=== PATIENT | male | born 1980 | race African-American/Black ===

== ENCOUNTER 2017-03-11 09:46 | Emergency (ER) | payer BC, OTHER ==
[~2017-03-11] VITALS: Ht 182.9 cm; Wt 100.0 kg
[2017-03-11 10:03] VITALS: BP 125/53
== END 2017-03-11 14:30 | disposition home or self-care (01) ==
LOC: ER 11:45
DX: M25.562 Pain in left knee (principal); G89.29 Other chronic pain; Z87.891 Personal history of nicotine dependence; Z98.890 Other specified postprocedural states
CPT/HCPCS: 99283; L1830; Z7610

== ENCOUNTER 2019-10-12 03:40 | Emergency (ER) | payer BC, OTHER ==
[~2019-10-12] VITALS: Ht 182.9 cm; Wt 82.0 kg
[2019-10-12 03:52] VITALS: BP 142/70
== END 2019-10-12 04:30 | disposition left against medical advice (07) ==
LOC: ER 03:40
DX: Z53.21 Procedure and treatment not carried out due to patient leaving prior to being seen by health care provider (principal)

== ENCOUNTER 2021-10-23 11:18 | Emergency (ER) | payer OTHER ==
[~2021-10-23] VITALS: Ht 177.8 cm; Wt 90.0 kg
[2021-10-23 11:32] VITALS: BP 122/79
[2021-10-23] MEDS ORDERED: CARB-274 EACH EAR (11:41)
== END 2021-10-23 12:00 | disposition home or self-care (01) ==
LOC: ER 11:18
DX: T16.2XXA Foreign body in left ear, initial encounter (principal); F20.9 Schizophrenia, unspecified; X58.XXXA Exposure to other specified factors, initial encounter; Y93.E8 Activity, other personal hygiene; Y92.018 Other place in single-family (private) house as the place of occurrence of the external cause
CPT/HCPCS: 69200; 99284

== ENCOUNTER 2023-03-15 22:06 | Emergency (ER) | payer MEDICAID, OTHER ==
[~2023-03-15] VITALS: Ht 185.4 cm; Wt 100.0 kg
[~2023-03-15 22:06] MED LIST: CARB-274 EACH EAR
[2023-03-15 22:08] VITALS: BP 144/78
== END 2023-03-15 22:42 | disposition home or self-care (01) ==
LOC: ER 22:06
DX: T40.711A Poisoning by cannabis, accidental (unintentional), initial encounter (principal); Y92.89 Other specified places as the place of occurrence of the external cause; W18.39XA Other fall on same level, initial encounter; Y93.89 Activity, other specified; Y99.8 Other external cause status; F20.9 Schizophrenia, unspecified
CPT/HCPCS: 99283

== ENCOUNTER 2024-07-21 11:14 | Emergency (ER) | payer OTHER ==
[~2024-07-21] VITALS: Ht 175.3 cm; Wt 75.0 kg
[2024-07-21 11:18] VITALS: TEMP 98.2; O2SAT 98
[2024-07-21] MEDS ORDERED: CYCLOBENZAPRINE 10MG TABLET PO STA (11:34)
[2024-07-21] MEDS ORDERED: DICY20TA2 MT (11:58)
[2024-07-21 13:27] VITALS: BP 120/78; PULSE 80; RESP 16; O2SAT 100
== END 2024-07-21 13:50 | disposition home or self-care (01) ==
LOC: ER 11:14
DX: S00.83XA Contusion of other part of head, initial encounter (principal); Y04.0XXA Assault by unarmed brawl or fight, initial encounter; Y93.89 Activity, other specified; Y92.89 Other specified places as the place of occurrence of the external cause; Y99.8 Other external cause status
CPT/HCPCS: 99283